=== PATIENT | male | born 1940 | race Caucasian/White ===

== ENCOUNTER → 2020-12-07 | Outpatient (CLI) | payer MEDICARE | LOC: WCC 11:30 | DX: E11.621 Type 2 diabetes mellitus with foot ulcer (principal); E11.610 Type 2 diabetes mellitus with diabetic neuropathic arthropathy; L89.624 Pressure ulcer of left heel, stage 4; I70.244 Atherosclerosis of native arteries of left leg with ulceration of heel and midfoot; I10 Essential (primary) hypertension | CPT/HCPCS: 87070; 87077; 87186; 87205 ==